=== PATIENT | female | born 1965 | race Caucasian/White ===

== ENCOUNTER → 2017-11-28 19:10 | Outpatient (CLI) | payer BC, SELFPAY ==
[2017-11-28 20:16] LABS: RBC /Synovial Fluid 0.003 10^6/uL (0); Synovial Fld Mononuclear WBC % 82.5 %; Synovial Fld Polynuclear WBC # 0.131 10^3/ul; Synovial Fld Polynuclear WBC % 17.5 %
[2017-11-28 20:36] LABS: AUTO B FLUID DILUENT BKGD CT WBC <0.1 RBC <0.01 (W<.1,R<.01); Appearance /Synovial Fluid Cloudy (CLEAR); Source / Synovial Fluid RIGHT KNEE; Source- Body Fluid SYNOVIAL; Viscosity / Synovial Fluid Sl. Viscous (HIGH)
[2017-11-28 20:37] LABS: Color / Synovial Fluid Yellow (Pale Yellow); Pathologist Review Will follow
[2017-11-28 21:14] LABS: Lymph 65 %; Monocyte /Synovial Fluid 29 %; Neutrophil 6 % (0-25)
[2017-11-30 13:49] LABS: Pathologist Comment Reviewed
== END ==
PROVIDERS: Visit Provider Internal Medicine Rheumatology
DX: L40.59 Other psoriatic arthropathy (principal); L40.8 Other psoriasis; M79.7 Fibromyalgia; M17.0 Bilateral primary osteoarthritis of knee; M18.12 Unilateral primary osteoarthritis of first carpometacarpal joint, left hand; K21.9 Gastro-esophageal reflux disease without esophagitis; M47.897 Other spondylosis, lumbosacral region; F41.9 Anxiety disorder, unspecified; E03.9 Hypothyroidism, unspecified; I10 Essential (primary) hypertension; I34.1 Nonrheumatic mitral (valve) prolapse; G43.909 Migraine, unspecified, not intractable, without status migrainosus; Z79.899 Other long term (current) drug therapy
CPT/HCPCS: 87070; 87075; 87205; 89050; 89051; 89060

== ENCOUNTER → 2020-10-28 12:58 | Outpatient (CLI) | payer BC, SELFPAY ==
--- NOTE | 2020-10-28 13:03 | CT_ITS ---
STUDY: CT CHEST WITHOUT CONTRAST REASON FOR EXAM: Female, 55 years old. BREAST CA RADIATION DOSAGE (If Supplied By Facility): CTDIvol = ( 18.37 ) mGy, DLP = ( 1377.59 ) mGycm TECHNIQUE: Transaxial imaging was performed without the administration of intravenous contrast material. Radiation treatment planning examination. Individualized dose optimization techniques were used for this CT. COMPARISON: None. FINDINGS: The patient is status post left lumpectomy with resultant post operative changes within the breast. There is a 3.3 cm Bard 3.1 cm hypodensity at the operative site most likely representing a postoperative seroma. The lungs are normal. There is no demonstrated pleural abnormality. There are calcifications of the coronary arteries. Normal mediastinum. Normal hilar regions. Normal unenhanced pulmonary arteries. Normal aorta arch and descending thoracic aorta. Normal osseous structures. The patient is status post cholecystectomy. CT/Chest without Contrast IMPRESSION: Status post left lumpectomy with postoperative changes. No pulmonary abnormality is seen. Electronically Signed: Didier Valdes MD at 14:29 EST , Service support ,
== END ==
PROVIDERS: PCP Family Medicine; Visit Provider Radiology Radiation Oncology
DX: C50.512 Malignant neoplasm of lower-outer quadrant of left female breast (principal)
CPT/HCPCS: 71250